=== PATIENT | female | born 1985 ===

== ENCOUNTER 2017-06-18 13:08 | Emergency (ER) | payer OTHER ==
[~2017-06-18] VITALS: Ht 160 cm; Wt 81.6 kg
[2017-06-18] MEDS ORDERED: CRYSELLE-28 TA1 EACH (13:22)
[2017-06-18] MEDS ORDERED: PREVACID30 MG (13:22)
== END 2017-06-18 18:56 | disposition home or self-care (01) ==
LOC: ER 13:08
DX: J06.9 Acute upper respiratory infection, unspecified (principal); H66.91 Otitis media, unspecified, right ear; J32.8 Other chronic sinusitis